=== PATIENT | female | born 1940 | race Caucasian/White ===

== ENCOUNTER 2016-11-12 09:31 | Day surgery (SDC) | payer MEDICARE, MEDICAID | END 2016-11-12 10:30 | disposition home or self-care (01) | LOC: HRAD 09:31 → HRIP 09:32 → HRAD 10:30 | DX: R18.8 Other ascites (principal); Z53.8 Procedure and treatment not carried out for other reasons ==

== ENCOUNTER → 2016-11-17 | Day surgery (SDC) | payer MEDICARE, MEDICAID ==
[~2016-11-17] MED LIST: BUPIVACAINE HCL PF 0.75% 10 ML VIAL ONE
[2016-11-17 10:31] LABS: INTERNATIONAL NORMALIZED RATIO 1.2 RATIO; PROTHROMBIN TIME - PATIENT 13.4 SEC (9.8-11.6)
[2016-11-17 11:21] VITALS: BP 150/65; PULSE 61; RESP 16; TEMP 97; O2SAT 93
[2016-11-17 14:00] VITALS: BP 142/76; PULSE 63; RESP 20; TEMP 98.2; O2SAT 94
[2016-11-17 14:15] VITALS: BP 146/73; PULSE 60; RESP 20; O2SAT 94
--- NOTE | 2016-11-17 16:39 | RADRPT ---
EXAM DATE/TIME: 11/17/2016 11:18 [facility] COMPARISON: No previous studies available for comparison. INDICATIONS : Ascites. MEDICAL HISTORY : Renal failure. Hypertension. PA. Renal dialysis. Diabetic. SURGICAL HISTORY : CABG. ENCOUNTER: Initial ACUITY: 4-6 days PAIN SCORE: 5/10 LOCATION: Left lower quadrant AREA EVALUATED: Left lower quadrant. FINDINGS: Imaging of the abdomen and pelvis was performed to evaluate for ascites for possible paracentesis. CONCLUSION: Attempt was made to perform the paracentesis under ultrasound. This was unsuccessful because of the thick viscous fluid. Attempt will be made under CT guidance.. Samm Stark MD FACR on November 17, 2016 at 16:37 Board Certified Radiologist. This report was verified electronically.
--- NOTE | 2016-11-17 16:54 | RADRPT ---
EXAM DATE/TIME: 11/17/2016 12:27 [facility] COMPARISON: No previous studies available for comparison. INDICATIONS : Ascites. DEVICE(S): 1.) [id number] FLUID: Total volume of 3000 cc of zhao cloudy fluid was removed. Fluid was sent for laboratory ordered studies. MEDICAL HISTORY : Renal failure, hypertension, [place] SURGICAL HISTORY : CABG ENCOUNTER: Initial ACUITY: 4 - 6 days PAIN SCORE: 5/10 LOCATION: Left lower quadrant PROCEDURE : 1. CT-guidance for abdominal paracentesis. 2. Paracentesis. The risks, benefits and alternatives to CT-guided paracentesis were explained to the patient in detai l, lay terms including the risk of bleeding and infection. Oral and written informed consent was obt ained. Using automated exposure control and adjustment of the mA and/or kV according to patient size, radiation dose was kept as low as reasonably achievable to obtain optimal diagnostic quality images. After failed ultrasound guided paracentesis, the patient was moved to the CT scanner. Appropriate fo r paracentesis was localized. 6-Yoruba catheter was placed in the peritoneal space and 3000 cc of ta n viscous material was removed and sent for studies. Post procedure scanning reveals no evidence of hematoma or other complication. The patient tolerated the procedure well and left the CT suite in good condition. CONCLUSION: Uncomplicated CT Guided paracentesis. Samm Stark MD FACR on November 17, 2016 at 16:41 Board Certified Radiologist. This report was verified electronically.
== END | disposition home or self-care (01) ==
LOC: CLAB 09:41
DX: R18.8 Other ascites (principal); I12.0 Hypertensive chronic kidney disease with stage 5 chronic kidney disease or end stage renal disease; N18.6 End stage renal disease; E11.22 Type 2 diabetes mellitus with diabetic chronic kidney disease; I25.2 Old myocardial infarction; N19 Unspecified kidney failure; Z95.1 Presence of aortocoronary bypass graft; Z99.2 Dependence on renal dialysis
CPT/HCPCS: 36415; 49083; 76705; 82042; 85610; 87070; 87205; 88112; 88305; C1729